=== PATIENT | male | born 1930 | race Caucasian/White ===

== ENCOUNTER 2017-04-12 17:15 | Inpatient (IN) | payer MEDICARE ==
[~2017-04-12] VITALS: Ht 175.3 cm; Wt 86.0 kg
[2017-04-12 17:53] LABS: BASOPHILS % (AUTO) 1.3 % (0.0-5.0); EOSINOPHILS % (AUTO) 4.1 % (0.0-8.0); HEMATOCRIT 39.3 % (42-54); LYMPHOCYTES % (AUTO) 19.7 % (21.0-51.0); MEAN CORPUSCULAR HEMOGLOBIN 33.7 pg (27.0-33.0); MEAN CORPUSCULAR HGB CONC 33.9 g/dL (32.0-36.0); MEAN CORPUSCULAR VOLUME 99.5 fL (79-99); MONOCYTES % (AUTO) 15.2 % (3.0-13.0); NEUTROPHILS % (AUTO) 59.7 % (40.0-77.0); NUCLEATED RED BLOOD CELLS 0.1 % (0.0-0.19); PLATELET COUNT (AUTO) 214 K/uL (130-400); RED BLOOD CELL COUNT(AUTO) 3.95 MIL/uL (4.50-6.20); RED CELL DISTRIBUTION WIDTH 15.3 % (11.0-15.5); WHITE BLOOD COUNT (AUTO) 4.9 K/uL (4.8-10.8)
[2017-04-12 18:02] LABS: CREATININE 1.4 mg/dL (0.5-1.5); POTASSIUM 4.1 mmol/L (3.5-5.1)
[2017-04-12 18:07] LABS: ALBUMIN 3.5 g/dL (3.5-5.0); BILIRUBIN,TOTAL 1.7 mg/dL (0.2-1.0); TOTAL PROTEIN, SERUM 7.5 g/dL (6.0-8.3)
[2017-04-12 18:32] LABS: B-TYPE NATRIURETIC PEPTIDE 846 pg/mL (0-100)
[2017-04-12 19:53] LABS: CREATINE KINASE MB 1.8 ng/mL (0.5-3.6); TROPONIN I 0.15 ng/mL (0.00-0.06)
[2017-04-13 06:37] LABS: CREATINE KINASE MB 1.5 ng/mL (0.5-3.6); TROPONIN I 0.16 ng/mL (0.00-0.06)
[2017-04-13] MEDS ORDERED: FUROSEMIDE 10 MG/ML 4ML VIAL ONE (08:39)
[2017-04-13] MEDS ORDERED: ASPIRIN 325 MG TABLET ONE (08:39)
[2017-04-13] MEDS: ASPIRIN 325MG EC TAB 325 MG TABLET.DR PO SCH (09:00)
[2017-04-13] MEDS ORDERED: LIDOCAINE HCL-MPF 1% 2ML VIAL IVP PRN (10:30)
[2017-04-13] MEDS ORDERED: MAG HYDROX/AL HYDROX/SIMETH ES 30 ML SUSP UDCUP PO PRN (10:30)
[2017-04-13] MEDS ORDERED: LACTULOSE 20 GM/30 ML UDCUP PO PRN (10:30)
[2017-04-13] MEDS ORDERED: ACETAMINOPHEN 325 MG TAB PO PRN ×2 (10:30)
[2017-04-13] MEDS ORDERED: NITROGLYCERIN 0.4 MG SL TAB SL PRN (10:30)
[2017-04-13] MEDS ORDERED: HYDRALAZINE HCL 20 MG/ML VIAL IV PRN (10:30)
[2017-04-13] MEDS ORDERED: ONDANSETRON HCL 4 MG/2 ML VIAL IV PRN (10:30)
[2017-04-13] MEDS ORDERED: GUAIFENESIN-DM 200/20 MG 10 ML PO PRN (10:30)
[2017-04-13] MEDS ORDERED: ACETAMINOPHEN-CODEINE 300/30MG TAB PO PRN ×2 (10:30)
[2017-04-13] MEDS ORDERED: POTASSIUM CHLORIDE 10% ELIXIR 20 MEQ/15 ML UDCUP PO PRN (10:30)
[2017-04-13] MEDS ORDERED: POTASSIUM CHLORIDE 20MEQ/100ML 100 ML IV PRN (10:30)
[2017-04-13 12:29] LABS: CREATININE 1.3 mg/dL (0.5-1.5); POTASSIUM 3.7 mmol/L (3.5-5.1)
[2017-04-13] MEDS ORDERED: AMLODIPINE BESYLATE 5 MG TAB PO ONE (14:28)
[2017-04-13] MEDS: FUROSEMIDE 10 MG/ML 2ML VIAL IV SCH (16:30)
[2017-04-13 19:08] LABS: INR 1.38 (0.85-1.15); PARTIAL THROMBOPLASTIN TIME 32.9 SEC (26.3-35.5); PROTHROMBIN TIME 14.4 SEC (9.6-11.6)
[2017-04-13] MEDS ORDERED: METOPROLOL TARTRATE 25 MG TAB ONE (20:43)
[2017-04-13] MEDS ORDERED: FAMOTIDINE 20MG TAB 20 MG TAB ONE (20:44)
[2017-04-13] MEDS: FAMOTIDINE/PF 20 MG/2 ML VIAL IV SCH (21:00)
[2017-04-13] MEDS: METOPROLOL TARTRATE 25 MG TAB PO SCH (21:00)
[2017-04-14 05:03] LABS: HEMATOCRIT 38.1 % (42-54); MEAN CORPUSCULAR HEMOGLOBIN 34.3 pg (27.0-33.0); MEAN CORPUSCULAR HGB CONC 34.3 g/dL (32.0-36.0); PLATELET COUNT (AUTO) 177 K/uL (130-400); RED BLOOD CELL COUNT(AUTO) 3.81 MIL/uL (4.50-6.20); RED CELL DISTRIBUTION WIDTH 15.5 % (11.0-15.5); WHITE BLOOD COUNT (AUTO) 4.3 K/uL (4.8-10.8)
[2017-04-14 05:11] LABS: CREATININE 1.2 mg/dL (0.5-1.5)
[2017-04-14] MEDS: LEVOTHYROXINE 25 MCG TABLET PO SCH (06:30)
[2017-04-14] MEDS ORDERED: LEVOTHYROXINE 25 MCG TABLET ONE (06:52)
[2017-04-14] MEDS ORDERED: POTASSIUM CHLORIDE 20 MEQ ERTAB PO ONE ×3 (06:52→12:21)
[2017-04-14] MEDS: FUROSEMIDE 10 MG/ML 2ML VIAL IV SCH ×2 (07:30→16:03)
[2017-04-14] MEDS ORDERED: AMLODIPINE BESYLATE 5 MG TAB PO ONE (08:58)
[2017-04-14] MEDS ORDERED: FUROSEMIDE 10 MG/ML 2ML VIAL ONE (08:59)
[2017-04-14] MEDS ORDERED: METOPROLOL TARTRATE 25 MG TAB ONE (08:59)
[2017-04-14] MEDS ORDERED: FAMOTIDINE/PF 20 MG/2 ML VIAL IV ONE (08:59)
[2017-04-14] MEDS: AMLODIPINE BESYLATE 5 MG TAB PO SCH (09:00)
[2017-04-14] MEDS: METOPROLOL TARTRATE 25 MG TAB PO SCH ×2 (09:00→19:52)
[2017-04-14] MEDS: ASPIRIN 325MG EC TAB 325 MG TABLET.DR PO SCH (09:00)
[2017-04-14] MEDS: FAMOTIDINE/PF 20 MG/2 ML VIAL IV SCH ×2 (09:00→19:52)
[2017-04-14 12:45] VITALS: BP 121/78
[2017-04-14 13:43] LABS: GLUCOSE,BODY FLUID 130 mg/dL (1-40)
[2017-04-14 14:17] LABS: APPEARANCE BODY FLUID CLEAR (CLEAR); COLOR,BODY FLUID YELLOW (LT YELLOW); SPECIMENTYPE,BODY FLUID THORACENTESIS; TOTAL VOLUME,BODY FLUID 1400 mL
[2017-04-14 14:18] LABS: BODY FLUID RBC 142 /cu. mm.; BODY FLUID WBC 404 /cu. mm.
[2017-04-14 14:24] LABS: BF LYMPHOCYTE 35 %; BF MESOTHELIAL 52 %; BF MONOCYTE 6 %
[2017-04-14 14:28] LABS: PH, BODY FLUID 7
[2017-04-14] MEDS: POTASSIUM CHLORIDE 20 MEQ ERTAB PO PRN ×2 (16:04→17:53)
[2017-04-14 16:56] VITALS: BP 143/80
[2017-04-14 19:42] VITALS: BP 128/71
[2017-04-14] MEDS ORDERED: RIVA20TA PO (21:52)
[2017-04-14] MEDS ORDERED: FURO20TA4 PO (21:52)
[2017-04-14] MEDS ORDERED: LOSA50TA37 PO (21:52)
[2017-04-14] MEDS ORDERED: FERR325T22 PO (21:52)
[2017-04-14] MEDS ORDERED: POTA-79 PO (21:52)
[2017-04-14] MEDS ORDERED: METO-409 PO (21:52)
[2017-04-14] MEDS ORDERED: AMLO5TAB2 PO (21:52)
[2017-04-14 23:32] VITALS: BP 121/81
[2017-04-15 03:58] VITALS: BP 125/74
[2017-04-15 04:36] LABS: CREATININE 1.1 mg/dL (0.5-1.5); POTASSIUM 3.6 mmol/L (3.5-5.1)
[2017-04-15] MEDS: FUROSEMIDE 10 MG/ML 2ML VIAL IV SCH (05:29)
[2017-04-15] MEDS: LEVOTHYROXINE 25 MCG TABLET PO SCH (05:29)
[2017-04-15] MEDS: POTASSIUM CHLORIDE 20 MEQ ERTAB PO PRN ×2 (05:29→09:01)
[2017-04-15] MEDS ORDERED: HONE44PA TP (06:11)
[2017-04-15] MEDS ORDERED: MUPI15CR12 TP (06:11)
[2017-04-15 07:00] VITALS: BP 121/65
[2017-04-15] MEDS ORDERED: FURO20TA4 PO (08:34)
[2017-04-15] MEDS ORDERED: POTA-79 PO (08:34)
[2017-04-15] MEDS: ASPIRIN 325MG EC TAB 325 MG TABLET.DR PO SCH (09:00)
[2017-04-15] MEDS: AMLODIPINE BESYLATE 5 MG TAB PO SCH (09:00)
[2017-04-15] MEDS: METOPROLOL TARTRATE 25 MG TAB PO SCH (09:00)
[2017-04-15] MEDS ORDERED: METO100T14 PO (09:14)
== END 2017-04-15 13:40 | disposition home or self-care (01) | DRG 292 ==
LOC: EDH 17:15 → EDHIP 19:07 → OBSVTOIN 19:07 → 2DH 04-14 12:11
PROVIDERS: ADMIT Internal Medicine; ATTEND Internal Medicine
PROC: 0W9B30Z Drainage of Left Pleural Cavity with Drainage Device, Percutaneous Approach (ICD-10-PCS; principal; 2017-04-14)
DX: I11.0 Hypertensive heart disease with heart failure (principal); J98.11 Atelectasis; I48.91 Unspecified atrial fibrillation; E11.9 Type 2 diabetes mellitus without complications; I50.43 Acute on chronic combined systolic (congestive) and diastolic (congestive) heart failure; E87.6 Hypokalemia; E78.5 Hyperlipidemia, unspecified; Z79.01 Long term (current) use of anticoagulants; Z87.891 Personal history of nicotine dependence; Z95.0 Presence of cardiac pacemaker; Z90.49 Acquired absence of other specified parts of digestive tract; Z98.49 Cataract extraction status, unspecified eye
CPT/HCPCS: 36415; 71045; 71046; 80048; 80053; 80061; 82550; 82553; 82945; 83615; 83874; 83880; 83986; 84132; 84157; 84484; 85025; 85027; 85610; 85730; 87071; 87205; 88108; 88305; 89051; 93005; 93971; J1940; J3490

== ENCOUNTER → 2017-08-08 | Outpatient (CLI) | payer MEDICARE ==
[~2017-08-08] MED LIST: AMLO5TAB2 PO; FERR325T22 PO; FURO20TA4 PO; HONE44PA TP; LOSA50TA37 PO; METO100T14 PO; MUPI15CR12 TP; POTA-79 PO; RIVA20TA PO
== END | disposition home or self-care (01) ==
LOC: SHCH 10:37
PROVIDERS: ATTEND Internal Medicine Cardiovascular Disease
DX: I08.1 Rheumatic disorders of both mitral and tricuspid valves (principal); I50.9 Heart failure, unspecified; Z95.0 Presence of cardiac pacemaker
CPT/HCPCS: 93306

== ENCOUNTER → 2017-09-06 | Outpatient (CLI) | payer MEDICARE ==
[2017-09-06 09:43] LABS: CREATININE 1.9 mg/dL (0.5-1.5); POTASSIUM 4.5 mmol/L (3.5-5.1)
== END | disposition home or self-care (01) ==
LOC: RAH 09:12
PROVIDERS: ATTEND Internal Medicine Cardiovascular Disease
DX: R16.1 Splenomegaly, not elsewhere classified (principal); R19.8 Other specified symptoms and signs involving the digestive system and abdomen
CPT/HCPCS: 36415; 76700; 80048

== ENCOUNTER → 2017-09-23 | Outpatient (CLI) | payer MEDICARE ==
[~2017-09-23] MED LIST changes: +LIDOCAINE HCL 1% 20 ML VIAL ONE
[2017-09-23 10:23] LABS: BASOPHILS % (AUTO) 1.4 % (0.0-5.0); EOSINOPHILS % (AUTO) 4.6 % (0.0-8.0); HEMATOCRIT 33.1 % (42-54); MEAN CORPUSCULAR HEMOGLOBIN 31.4 pg (27.0-33.0); MEAN CORPUSCULAR HGB CONC 33.9 g/dL (32.0-36.0); MEAN CORPUSCULAR VOLUME 92.6 fL (79-99); MONOCYTES % (AUTO) 16.7 % (3.0-13.0); NEUTROPHILS % (AUTO) 53.3 % (40.0-77.0); NUCLEATED RED BLOOD CELLS 0.1 % (0.0-0.19); PLATELET COUNT (AUTO) 183 K/uL (130-400); RED BLOOD CELL COUNT(AUTO) 3.58 MIL/uL (4.50-6.20); RED CELL DISTRIBUTION WIDTH 16.1 % (11.0-15.5); WHITE BLOOD COUNT (AUTO) 4.5 K/uL (4.8-10.8)
[2017-09-23 10:34] LABS: INR 1.23 (0.85-1.15); PROTHROMBIN TIME 12.9 SEC (9.6-11.6)
[2017-09-23 12:53] LABS: APPEARANCE BODY FLUID CLEAR (CLEAR); BODY FLUID RBC 102 /cu. mm.; BODY FLUID WBC 285 /cu. mm.; COLOR,BODY FLUID YELLOW (LT YELLOW); SPECIMENTYPE,BODY FLUID THORACENTESIS; TOTAL VOLUME,BODY FLUID 1100 mL
[2017-09-23 13:25] LABS: BF LYMPHOCYTE 39 %; BF MESOTHELIAL 45 %; BF MONOCYTE 7 %
== END | disposition home or self-care (01) ==
LOC: RAH 09:20
PROVIDERS: ATTEND Internal Medicine
DX: J90 Pleural effusion, not elsewhere classified (principal); I50.9 Heart failure, unspecified; I11.0 Hypertensive heart disease with heart failure; I48.91 Unspecified atrial fibrillation; Z87.891 Personal history of nicotine dependence; Z79.899 Other long term (current) drug therapy; Z82.49 Family history of ischemic heart disease and other diseases of the circulatory system; Z79.01 Long term (current) use of anticoagulants
CPT/HCPCS: 32555; 36415; 71045; 83615; 83986; 84155; 84157; 85025; 85610; 85730; 87071; 87103; 87205; 87206; 88108; 88305; 89051

== ENCOUNTER → 2017-10-04 | Outpatient (CLI) | payer MEDICARE ==
[~2017-10-04] MED LIST changes: -LIDOCAINE HCL 1% 20 ML VIAL ONE
== END | disposition home or self-care (01) ==
LOC: RAH 14:14
PROVIDERS: ATTEND Physician Assistant Medical
DX: J90 Pleural effusion, not elsewhere classified (principal); R91.8 Other nonspecific abnormal finding of lung field; M47.895 Other spondylosis, thoracolumbar region
CPT/HCPCS: 71046

== ENCOUNTER 2019-02-03 15:31 | Inpatient (IN) | payer MEDICARE ==
[~2019-02-03] VITALS: Ht 175.3 cm; Wt 76.1 kg
[~2019-02-03 15:31] MED LIST changes: -AMLO5TAB2 PO; +AMLO5TAB9 PO; -LOSA50TA37 PO; +LOSA50TA64 PO
[2019-02-03] MEDS ORDERED: NITROGLYCERIN 1GM/1 INCH PACKET TD ONE (16:04)
[2019-02-03 16:46] LABS: BASOPHILS % (AUTO) 0.7 % (0.0-5.0); EOSINOPHILS % (AUTO) 2.8 % (0.0-8.0); HEMATOCRIT 39.9 % (42-54); LYMPHOCYTES % (AUTO) 13.7 % (21.0-51.0); MEAN CORPUSCULAR HEMOGLOBIN 31.6 pg (27.0-33.0); MEAN CORPUSCULAR HGB CONC 33.9 g/dL (32.0-36.0); MEAN CORPUSCULAR VOLUME 93.2 fL (79-99); MONOCYTES % (AUTO) 12.1 % (3.0-13.0); NEUTROPHILS % (AUTO) 70.7 % (40.0-77.0); PLATELET COUNT (AUTO) 163 K/uL (130-400); RED BLOOD CELL COUNT(AUTO) 4.28 MIL/uL (4.50-6.20); RED CELL DISTRIBUTION WIDTH 14.2 % (11.0-15.5); WHITE BLOOD COUNT (AUTO) 6.4 K/uL (4.8-10.8)
[2019-02-03 16:56] LABS: CREATININE 1.3 mg/dL (0.5-1.5); POTASSIUM 4.4 mmol/L (3.5-5.1)
[2019-02-03] MEDS ORDERED: ONDANSETRON HCL 4 MG/2 ML VIAL IV PRN (19:30)
[2019-02-03] MEDS ORDERED: ACETAMINOPHEN 325 MG TAB PO PRN ×2 (19:30)
[2019-02-03] MEDS ORDERED: LACTULOSE 20 GM/30 ML UDCUP PO PRN (19:30)
[2019-02-03] MEDS ORDERED: NITROGLYCERIN 0.4 MG SL TAB SL PRN (19:30)
[2019-02-03] MEDS ORDERED: MORPHINE SULFATE 2 MG/ML 1ML SYG IV PRN (19:30)
[2019-02-03] MEDS: ATORVASTATIN CALCIUM 20 MG TABLET PO SCH (21:00)
[2019-02-03] MEDS ORDERED: METOPROLOL TARTRATE 25 MG TAB PO SCH (21:00)
[2019-02-03] MEDS ORDERED: ATORVASTATIN CALCIUM 20 MG TABLET ONE (21:37)
[2019-02-03] MEDS ORDERED: METOPROLOL TARTRATE 50 MG TAB ONE (21:37)
[2019-02-03 21:58] LABS: TROPONIN I 0.12 ng/mL (0.00-0.06)
[2019-02-03] MEDS ORDERED: ONDANSETRON HCL 4 MG/2 ML VIAL ONE (23:11)
[2019-02-03] MEDS ORDERED: MORPHINE SULFATE 2 MG/ML 1ML SYG ONE (23:12)
[2019-02-04 01:50] LABS: TROPONIN I 0.11 ng/mL (0.00-0.06)
[2019-02-04 05:25] LABS: EOSINOPHILS % (AUTO) 10.1 % (0.0-8.0); HEMATOCRIT 35.8 % (42-54); LYMPHOCYTES % (AUTO) 17.7 % (21.0-51.0); MEAN CORPUSCULAR HEMOGLOBIN 32.5 pg (27.0-33.0); MEAN CORPUSCULAR HGB CONC 34.7 g/dL (32.0-36.0); MEAN CORPUSCULAR VOLUME 93.7 fL (79-99); MONOCYTES % (AUTO) 14.5 % (3.0-13.0); NEUTROPHILS % (AUTO) 56.7 % (40.0-77.0); PLATELET COUNT (AUTO) 161 K/uL (130-400); RED BLOOD CELL COUNT(AUTO) 3.82 MIL/uL (4.50-6.20); RED CELL DISTRIBUTION WIDTH 14.6 % (11.0-15.5); WHITE BLOOD COUNT (AUTO) 4.8 K/uL (4.8-10.8)
[2019-02-04 06:26] LABS: CREATININE 1.2 mg/dL (0.5-1.5); POTASSIUM 4.4 mmol/L (3.5-5.1)
[2019-02-04] MEDS ORDERED: ASPIRIN 81MG TAB.CHEW ONE (07:38)
[2019-02-04] MEDS ORDERED: METOPROLOL TARTRATE 50 MG TAB ONE (07:39)
[2019-02-04] MEDS ORDERED: FAMOTIDINE 20MG TAB 20 MG TAB ONE (07:39)
[2019-02-04] MEDS: METOPROLOL TARTRATE 50 MG TAB PO SCH ×2 (09:00→20:51)
[2019-02-04] MEDS: ENOXAPARIN SODIUM 80 MG/0.8 ML SQ SCH ×2 (09:00→20:54)
[2019-02-04] MEDS: FAMOTIDINE 20MG TAB 20 MG TAB PO SCH (09:00)
[2019-02-04] MEDS ORDERED: ASPIRIN 325 MG TABLET PO SCH (09:00)
[2019-02-04] MEDS: ASPIRIN 81MG TAB.CHEW PO SCH (09:00)
[2019-02-04] MEDS ORDERED: ENOXAPARIN SODIUM 100 MG/1 ML SQ ONE (12:27)
[2019-02-04 14:10] VITALS: BP 107/63
--- NOTE | 2019-02-04 20:00 | NUR ---
PM NOTE PATIENT SITTING IN CHAIR. NO S/S OF DISTRESS, DENIES PAIN AT THIS TIME. PATIENT ROOM AIR. FAMILY AT BEDSIDE. PATIENT IS UP AD LEANNA. ON TELEMETRY PATIENT IS AFIB, V PACED, HEART RATE 70. CALL LIGHT WITHIN REACH, INSTRUCTED TO CALL FOR ASSISTANCE. VERBALIZED UNDERSTANDING.
[2019-02-04 20:34] VITALS: BP 112/63
[2019-02-04] MEDS: ATORVASTATIN CALCIUM 20 MG TABLET PO SCH (20:51)
[2019-02-04] MEDS ORDERED: HONEY 1 APPL/ML TUBE TP SCH (22:15)
[2019-02-05] VITALS: BP 103/57
[2019-02-05 04:25] VITALS: BP 131/71
[2019-02-05] MEDS ORDERED: REGADENOSON 0.4 MG/5 ML PF SYG IVP SCH (07:30)
[2019-02-05 07:45] VITALS: BP 134/61
[2019-02-05] MEDS ORDERED: ASPI-1005 PO (08:39)
[2019-02-05] MEDS ORDERED: ATOR20TA65 PO (08:39)
[2019-02-05] MEDS ORDERED: METO50 PO (08:39)
[2019-02-05] MEDS ORDERED: RIVAROXABAN 20 MG TABLET PO SCH (09:00)
[2019-02-05] MEDS ORDERED: HONEY 1 APPL/ML TUBE TP SCH (09:00)
[2019-02-05] MEDS ORDERED: FUROSEMIDE 20 MG TABLET PO SCH (09:00)
[2019-02-05] MEDS ORDERED: NON-FORMULARY MEDICATION 1 EACH (Metoprolol Tartrate 100 MG) PO SCH (09:00)
[2019-02-05] MEDS ORDERED: FERROUS SULFATE 325 MG TABLET.DR PO SCH (09:00)
[2019-02-05] MEDS ORDERED: MUPIROCIN OINTMENT 22 GM TUBE TP SCH (09:00)
[2019-02-05] MEDS: FAMOTIDINE 20MG TAB 20 MG TAB PO SCH (09:11)
[2019-02-05] MEDS: ASPIRIN 81MG TAB.CHEW PO SCH (09:13)
[2019-02-05] MEDS: METOPROLOL TARTRATE 50 MG TAB PO SCH (09:14)
--- NOTE | 2019-02-05 11:32 | NUR ---
1059 had IM letter Signed
--- NOTE | 2019-02-05 14:39 | NUR ---
DC PLAN PER PATIENT, STATES HE IS INDEPENDENT, LIVES WITH SPOUSE, NO PROVIDER, HAS A CANE, AND FEELS SAFE TO RETURN HOME. Addendum: 02/05/19 at 1440 by DANA VICKERS Amended: Links added.
== END 2019-02-05 12:00 | disposition home or self-care (01) | DRG 303 ==
LOC: EDH 15:31 → OBSVTOIN 19:37 → EDHIP 19:37 → 2DH 02-04 14:12
PROVIDERS: ADMIT Internal Medicine; ATTEND Internal Medicine
DX: I25.118 Atherosclerotic heart disease of native coronary artery with other forms of angina pectoris (principal); I50.32 Chronic diastolic (congestive) heart failure; D68.59 Other primary thrombophilia; I13.0 Hypertensive heart and chronic kidney disease with heart failure and stage 1 through stage 4 chronic kidney disease, or unspecified chronic kidney disease; I48.19 Other persistent atrial fibrillation; E03.9 Hypothyroidism, unspecified; E78.5 Hyperlipidemia, unspecified; D64.9 Anemia, unspecified; I45.9 Conduction disorder, unspecified; N18.3 Chronic kidney disease, stage 3 (moderate); E11.22 Type 2 diabetes mellitus with diabetic chronic kidney disease; Z95.0 Presence of cardiac pacemaker; Z79.01 Long term (current) use of anticoagulants; Z82.49 Family history of ischemic heart disease and other diseases of the circulatory system; Z83.3 Family history of diabetes mellitus; Z87.891 Personal history of nicotine dependence; Z90.49 Acquired absence of other specified parts of digestive tract; Z95.5 Presence of coronary angioplasty implant and graft; Z87.11 Personal history of peptic ulcer disease
CPT/HCPCS: 36415; 71046; 78580; 80048; 82550; 83874; 84484; 85025; 85378; 93005; 99291; A9540; G0378; J1650; J2405; J2785

== ENCOUNTER → 2019-02-12 | Outpatient (CLI) | payer MEDICARE ==
[~2019-02-12] MED LIST changes: -AMLO5TAB9 PO; +ASPI-1005 PO; +ATOR20TA65 PO; -LOSA50TA64 PO; +METO50 PO; -POTA-79 PO; +REGADENOSON 0.4 MG/5 ML PF SYG IVP ONE
== END | disposition home or self-care (01) ==
LOC: SHCH 09:45
PROVIDERS: ATTEND Internal Medicine Cardiovascular Disease
DX: I25.10 Atherosclerotic heart disease of native coronary artery without angina pectoris (principal); I10 Essential (primary) hypertension; I48.91 Unspecified atrial fibrillation
CPT/HCPCS: 78452; 93017; 96374; A9500 ×2; J2785